=== PATIENT | male | born 1975 | race Two or more races ===

== ENCOUNTER → 2022-10-27 | Outpatient (CLI) | payer BC ==
[2022-10-27 11:06] LABS: Basophils # (auto) 0 10 ^3/uL (0-0.2); Basophils % (auto) 0.8 % (0.0-2.0); Eosinophils # (auto) 0.2 10 ^3/uL (0-0.8); Eosinophils % (auto) 3.8 % (0.0-7.0); Hematocrit 41.1 % (41.0-53.0); Hemoglobin 14.1 g/dL (13.5-17.5); Lymphocytes # (auto) 1.8 10 ^3/uL (0.4-5.4); Lymphocytes % (auto) 40.3 % (10.0-50.0); Mean Corpuscular Hemoglobin 30.9 pg (28.0-32.0); Mean Corpuscular Hgb Conc. 34.4 g/dL (32.0-36.0); Mean Corpuscular Volume 89.9 fL (80.0-100.0); Monocytes # (auto) 0.5 10 ^3/uL (0-1.3); Monocytes % (auto) 10.5 % (0.0-12.0); Neutrophils % (auto) 44.6 % (37.0-80.0); Nucleated Red Blood Cells % 0.1 %; Red Blood Cells 4.58 10^6/uL (4.5-5.90); Red Cell Distribution Width 13.8 % (11.8-14.3); White Blood Cell 4.5 10^3/uL (4.4-10.8)
[2022-10-27 11:37] LABS: Magnesium 2.6 mg/dL (1.6-2.6); Potassium 4.5 mmol/L (3.5-5.1)
[2022-10-27 11:45] LABS: Albumin 4.2 g/dL (3.4-5.0); BUN/Creatinine Ratio 14.3 (10.0-20.0); Bilirubin, Total 0.7 mg/dL (0.2-1.0); Calcium 9.1 mg/dL (8.5-10.1); Total Protein 7.5 g/dL (6.4-8.2); Uric Acid 5.7 mg/dL (3.5-7.2)
[2022-10-27 11:56] LABS: Urine Bacteria FEW /hpf (None Seen); Urine Blood Negative /uL (Negative); Urine Hyaline Cast FEW /lpf (0 - 2); Urine Mucus FEW (None Seen); Urine Specific Gravity 1.026 (1.001-1.035); Urine WBC 1 /hpf (0 - 3)
== END | disposition home or self-care (01) ==
LOC: LAB 10:50
PROVIDERS: ATTEND Internal Medicine
DX: E78.41 Elevated Lipoprotein(a) (principal); R68.84 Jaw pain; R73.09 Other abnormal glucose; E61.2 Magnesium deficiency; E79.0 Hyperuricemia without signs of inflammatory arthritis and tophaceous disease; E55.9 Vitamin D deficiency, unspecified; R94.6 Abnormal results of thyroid function studies; D51.9 Vitamin B12 deficiency anemia, unspecified; R82.991 Hypocitraturia; R82.90 Unspecified abnormal findings in urine; R82.79 Other abnormal findings on microbiological examination of urine
CPT/HCPCS: 36415; 80053; 80061; 81001; 82306; 82607; 83036; 83735; 84443; 84550; 85025; 87086

== ENCOUNTER → 2023-10-31 | Outpatient (CLI) | payer BC ==
[2023-10-31 06:49] LABS: Urine Bacteria None Seen /hpf (None Seen)
[2023-10-31 07:33] LABS: Basophils # (auto) 0 10 ^3/uL (0-0.2); Basophils % (auto) 0.8 % (0.0-2.0); Eosinophils # (auto) 0.3 10 ^3/uL (0-0.8); Eosinophils % (auto) 6.5 % (0.0-7.0); Hematocrit 39.6 % (41.0-53.0); Hemoglobin 13.9 g/dL (13.5-17.5); Lymphocytes % (auto) 44.1 % (10.0-50.0); Mean Corpuscular Hgb Conc. 35.1 g/dL (32.0-36.0); Mean Corpuscular Volume 88.4 fL (80.0-100.0); Monocytes # (auto) 0.5 10 ^3/uL (0-1.3); Monocytes % (auto) 10.3 % (0.0-12.0); Neutrophils # (auto) 1.7 10 ^3/uL (1.6-8.6); Neutrophils % (auto) 38.3 % (37.0-80.0); Nucleated Red Blood Cells % 0.2 %; Red Blood Cells 4.49 10^6/uL (4.5-5.90); Red Cell Distribution Width 13.4 % (11.8-14.3); White Blood Cell 4.5 10^3/uL (4.4-10.8)
[2023-10-31 07:42] LABS: Urine Blood Negative /uL (Negative); Urine Clarity Clear (Clear); Urine Color Light-Yellow (Yellow); Urine Protein, UAD Negative (Negative); Urine Specific Gravity 1.017 (1.001-1.035); Urine Urobilinogen Normal (Negative); Urine WBC <1 /hpf (0 - 3); Urine pH 6.5 (5.0-9.0)
[2023-10-31 08:22] LABS: Alanine Aminotransferase 36 U/L (7-40); Albumin 4.6 g/dL (3.2-4.8); Alkaline Phosphatase 79 U/L (46-116); Anion Gap 8 (5-15); Aspartate Aminotransferase 15 U/L (13-40); BUN/Creatinine Ratio 10.1 (10.0-20.0); Bilirubin, Total 0.6 mg/dL (0.2-1.0); Blood Urea Nitrogen 9 mg/dL (9-23); Calcium 9.8 mg/dL (8.7-10.4); Carbon Dioxide 28 mmol/L (20-30); Chloride 108 mmol/L (98-107); Cholesterol 174 mg/dL (< 200); Glucose 105 mg/dL (74-106); HDL Cholesterol 42 mg/dL (40-59); LDL Cholesterol 110 mg/dL (< 100); Magnesium 2.2 mg/dL (1.6-2.6); Potassium 3.9 mmol/L (3.5-5.1); Sodium 144 mmol/L (136-145); Total Protein 7.3 g/dL (5.7-8.2); Triglycerides 143 mg/dL (< 150)
[2023-10-31 08:47] LABS: Uric Acid 4.7 mg/dL (3.7-9.2)
[2023-10-31 08:52] LABS: Folate (Folic Acid) 10.25 ng/mL (>5.38)
== END | disposition home or self-care (01) ==
LOC: LAB 06:30
PROVIDERS: ATTEND Internal Medicine
DX: E78.5 Hyperlipidemia, unspecified (principal); E66.01 Morbid (severe) obesity due to excess calories; Z68.31 Body mass index [BMI] 31.0-31.9, adult; Z71.3 Dietary counseling and surveillance; Z71.82 Exercise counseling
CPT/HCPCS: 36415; 80053; 80061; 81001; 82306; 82607; 82746; 83036; 83735; 84443; 84550; 85025; 87086

== ENCOUNTER → 2024-03-19 | Outpatient (CLI) | payer BC ==
[2024-03-19 11:21] LABS: Urine Bacteria None Seen /hpf (None Seen); Urine WBC None Seen /hpf (0 - 3)
[2024-03-19 11:40] LABS: Basophils # (auto) 0 10 ^3/uL (0-0.2); Basophils % (auto) 0.5 % (0.0-2.0); Eosinophils # (auto) 0.1 10 ^3/uL (0-0.8); Eosinophils % (auto) 1.4 % (0.0-7.0); Hematocrit 42.4 % (41.0-53.0); Hemoglobin 14.6 g/dL (13.5-17.5); Lymphocytes # (auto) 1.5 10 ^3/uL (0.4-5.4); Lymphocytes % (auto) 17.9 % (10.0-50.0); Mean Corpuscular Hemoglobin 31.7 pg (28.0-32.0); Mean Corpuscular Hgb Conc. 34.5 g/dL (32.0-36.0); Mean Corpuscular Volume 91.8 fL (80.0-100.0); Monocytes # (auto) 0.6 10 ^3/uL (0-1.3); Neutrophils # (auto) 6.2 10 ^3/uL (1.6-8.6); Neutrophils % (auto) 73.2 % (37.0-80.0); Platelet Count (auto) 253 10^3/uL (140-450); Red Blood Cells 4.62 10^6/uL (4.5-5.90); Red Cell Distribution Width 14.5 % (11.8-14.3); White Blood Cell 8.5 10^3/uL (4.4-10.8)
[2024-03-19 11:44] LABS: Urine Blood Negative /uL (Negative); Urine Clarity Clear (Clear); Urine Color Colorless (Yellow); Urine Protein, UAD Negative (Negative); Urine Specific Gravity 1.005 (1.001-1.035); Urine Urobilinogen Normal (Negative)
[2024-03-19 12:28] LABS: Alanine Aminotransferase 40 U/L (7-40); Albumin 4.7 g/dL (3.2-4.8); Alkaline Phosphatase 87 U/L (46-116); Anion Gap 6 (5-15); Aspartate Aminotransferase 21 U/L (13-40); BUN/Creatinine Ratio 9.9 (10.0-20.0); Calcium 9.8 mg/dL (8.7-10.4); Carbon Dioxide 29 mmol/L (20-31); Chloride 104 mmol/L (98-107); HDL Cholesterol 57 mg/dL (40-59); Potassium 3.9 mmol/L (3.5-5.1); Sodium 139 mmol/L (136-145)
[2024-03-19 12:29] LABS: Bilirubin, Total 0.6 mg/dL (0.2-1.0); Blood Urea Nitrogen 8 mg/dL (9-23); Cholesterol 256 mg/dL (< 200); Glucose 110 mg/dL (74-106); LDL Cholesterol 163 mg/dL (< 100); Total Protein 7.5 g/dL (5.7-8.2); Triglycerides 167 mg/dL (< 150)
[2024-03-19 12:32] LABS: Folate (Folic Acid) 6.47 ng/mL (>5.38)
[2024-03-19 12:46] LABS: Uric Acid 5.1 mg/dL (3.7-9.2)
== END | disposition home or self-care (01) ==
LOC: LAB 10:49
PROVIDERS: ATTEND Internal Medicine
DX: R79.89 Other specified abnormal findings of blood chemistry (principal); R68.89 Other general symptoms and signs; R73.09 Other abnormal glucose; E61.2 Magnesium deficiency; R94.6 Abnormal results of thyroid function studies; E55.9 Vitamin D deficiency, unspecified; R82.90 Unspecified abnormal findings in urine; R82.79 Other abnormal findings on microbiological examination of urine; D51.9 Vitamin B12 deficiency anemia, unspecified
CPT/HCPCS: 36415; 80053; 80061; 81001; 82306; 82607; 82746; 83036; 84443; 84550; 85025; 87086